=== PATIENT | male | born 1980 | race Hispanic/Latino ===

== ENCOUNTER 2023-02-24 21:51 | Emergency (ER) | payer SELFPAY ==
[2023-02-24] MEDS ORDERED: HYDROcodone/Acetaminophen 10/325 mg Tablet ONE (22:43)
== END 2023-02-24 22:54 | disposition home or self-care (01) ==
LOC: ERS 21:51
DX: K08.89 Other specified disorders of teeth and supporting structures (principal); F17.290 Nicotine dependence, other tobacco product, uncomplicated
CPT/HCPCS: 99282

== ENCOUNTER 2025-01-08 21:50 | Emergency (ER) | payer OTHER, SELFPAY | END 2025-01-09 00:01 | disposition home or self-care (01) | LOC: ERS 21:50 | DX: S60.211A Contusion of right wrist, initial encounter (principal); F17.210 Nicotine dependence, cigarettes, uncomplicated; F17.290 Nicotine dependence, other tobacco product, uncomplicated; W01.0XXA Fall on same level from slipping, tripping and stumbling without subsequent striking against object, initial encounter; Y93.9 Activity, unspecified | CPT/HCPCS: 99283 ==